=== PATIENT | male | born 1975 | race Two or more races ===

== ENCOUNTER 2021-03-09 14:49 | Outpatient (REF) | payer MEDICAID, SELFPAY ==
--- NOTE | ~2021-03-09 | XR_ITS ---
EXAMINATION: XR CHEST CLINICAL INFORMATION: Right lung bronchi COMPARISON: None TECHNIQUE: 2 views of the chest were obtained. FINDINGS: No significant abnormality is noted involving the heart, lungs, mediastinum, bony thorax or soft tissues. XR/XR chest 2V IMPRESSION: Unremarkable examination.
[2021-03-09 15:43] LABS: MANUAL DIFF FLAG NO
[2021-03-09 15:48] LABS: Basophils Absolute Auto 0.1 X10*3/uL (0.0-0.2); Basophils Percent Auto 0.8 % (0-2); Eosinophils Absolute Auto 0.1 X10*3/uL (0.0-0.4); Eosinophils Percent Auto 1.5 % (0-4); Hematocrit 49.2 % (42-52); Hemoglobin 16.2 g/dl (14.0-18.0); Imm Gran Abs Auto 0.05 X10*3/uL (0.00-0.03); Imm Gran Pct Auto 0.5 % (0.0-0.4); Lymphocytes Absolute Auto 2.3 X10*3/uL (1.2-4.9); Lymphocytes Percent Auto 24.7 % (20-40); Mean Corpuscular HGB Conc 32.9 g/dl (31.0-36.0); Mean Corpuscular Hemoglobin 30.6 pg (27.0-33.0); Mean Platelet Volume 8.8 fL (9.4-12.4); Neutrophils Absolute Auto 5.9 X10*3/uL (2.0-8.3); Neutrophils Percent Auto 62.5 % (45-73); Platelet Count 378 X10*3/uL (160-400); Red Blood Count 5.29 X10*6/uL (4.60-5.80); Red Cell Distribution Width 11.7 % (11.0-16.0); White Blood Count 9.5 X10*3/uL (4.8-10.8)
[2021-03-09 16:16] LABS: Alanine Aminotransferase 24 U/L (0-40); Albumin Level 4.7 g/dL (3.5-5.0); Alkaline Phosphatase 96 U/L (39-117); Anion Gap 15 (12-20); Aspartate Amino Transferase 20 U/L (5-37); Bilirubin Total 0.4 mg/dL (0.0-1.0); Blood Urea Nitrogen 11 mg/dL (9-16); Calcium 9.6 mg/dL (8.4-10.2); Carbon Dioxide 28 mmol/L (22-29); Chloride 106 mmol/L (96-108); Cholesterol 211 mg/dL; Estimated Glomerular Filt Rate 60; Glucose Random 91 mg/dL (60-115); Sodium 144 mmol/L (135-145); Total Protein 7.7 g/dL (6.5-8.0)
[2021-03-09 16:39] LABS: Glucose Urine UA NEG (NEG); Leukocyte Esterase Urine NEG (NEG); Nitrite Urine NEG (NEG); Specific Gravity - Urine >= 1.030 (1.005-1.025); UACC Culture Trigger NO; Urine Blood 3+ (NEG); Urine Ketones 5 MG/DL (NEG); Urine Protein NEG (NEG-TRACE)
[2021-03-09 16:40] LABS: Appearance Urine CLEAR; Color Urine YELLOW
[2021-03-09 16:53] LABS: Mucus Urine 4+ /LPF; WBC Urine 0 /HPF (0-4)
== END 2021-03-09 14:50 | disposition home or self-care (01) ==
LOC: HO.LAB 14:49
PROVIDERS: PCP Internal Medicine; Visit Provider Internal Medicine
DX: R30.0 Dysuria (principal); R63.5 Abnormal weight gain; R09.89 Other specified symptoms and signs involving the circulatory and respiratory systems; Z86.73 Personal history of transient ischemic attack (TIA), and cerebral infarction without residual deficits
CPT/HCPCS: 36415; 71046; 80053; 81001; 82465; 85025; 87086

== ENCOUNTER 2021-03-18 14:32 | Outpatient (REF) | payer MEDICAID, SELFPAY ==
--- NOTE | ~2021-03-18 | FL_ITS ---
EXAMINATION: XR BARIUM SWALLOW CLINICAL INFORMATION: Dysarthria. COMPARISON: None TECHNIQUE: Modified barium swallow with speech pathologist. FINDINGS: Patient swallowed multiple consistencies from thin liquid to barium-coated cookie. On initial swallow of thin liquid, there was laryngeal penetration without tracheal aspiration. On all remaining swallows, there was no evidence of laryngeal penetration. FLUOROSCOPY TIME: 2.1 minutes DOSE AREA PRODUCT: 1.928 Gy-cm2 (vo-centimeter squared) FL/FL barium swallow modified IMPRESSION: Laryngeal penetration on only the first swallow of thin liquid. Remainder of examination was normal. Please refer to speech pathologist report for details.
--- NOTE | 2021-03-20 17:04 | MHC.SL.IMP ---
Date of Plan of Treatment: 03/18/21 Onset of Symptoms/Illness: 03/18/21 Date Treatment Started: 03/18/21 Admitting Diagnosis: History of CVA Primary Speech & Language Diagnosis: R13.12 Oropharyngeal Phase Dysphagia Reason for Today's Visit: 46111 Modified Barium Swallow Study Pre-evaluation Dietary Consistencies: Regular Pre-evaluation Liquid Consistency: Thin Pre-evaluation Medication Administration: Whole with Liquid Medical History: Modified Barium Swallow Study Fluoroscopic Evaluation of Swallowing Function CPT Code 27047 Evaluation Year: 2020 Reason for Study: Patient reports globus sensation. Referring Physician: Dr. Chad Sue Evaluating Clinician: Mis Shaw M.A., CCC-EMERGENCY OPERATOR Study Number: 1 Patient Name: Beltran Mcknight Status: Outpatient, Ambulatory/Assisted Age: 45 Gender: Male MEDICAL HISTORY: Primary (admitting) Diagnosis: CVA Year of Onset or Diagnosis: 2020 Current (pre-evaluation) Intake/Diet: Route: PO Diet Grade: Regular Liquid Consistencies: Thin Pre-Study Functional Oral Intake Scale (FOIS): 7- Total oral intake with no restrictions Pain: None reported at time of study Oral Motor Exam Mouth Occlusion: Normal Oral-Facial Teeth Characteristics: Intact/Normal Oral-Facial Lip Pucker Description: Normal Oral-Facial Smile (Lips) Description: Normal Oral-Facial Puff Cheeks Description: Normal Tongue Size: Normal Tongue Frenum Length: Normal Is patient able to manage secretions?: Yes Food and Liquid Trials: Oral Impairment: Lip Closure: Did not test Oral Impairment: Tongue Control During Bolus Hold: 3=Posterior escape of greater than half of bolus Oral Impairment: Bolus Preparation/Mastication: 1=Slow prolonged chewing/mashing with complete re-collection Oral Impairment: Bolus Transport/Lingual Motion: 3=Repetitive/disorganized tongue motion Oral Impairment: Oral Residue: 2=Residue collection on oral structures Oral Impairment:Initiation of Pharyngeal Swallow: 3=Bolus head in pyriforms Pharyngeal Impairment: Soft Palate Elevation: 0=No bolus between soft palate (SP)/pharyngeal wall (PW) Pharyngeal Impairment: Laryngeal Elevation: 1=Partial thyroid cartilage/arytenoids to epiglottic petiole movement Pharyngeal Impairment: Anterior Hyoid Excursion: 1=Partial anterior movement Pharyngeal Impairment: Epiglottic Movement: 1=Partial inversion Pharyngeal Impairment: Laryngeal Vestibular Closure:: 1=Incomplete: narrow column air/contrast in laryngeal vestibule Pharyngeal Impairment: Pharyngeal Stripping Wave: 1=Present: diminished Pharyngeal Impairment: Pharyngeal Contraction: Did not test Pharyngeal Impairment: Pharyngoesophageal Segment Openin=Complete distension and complete duration: no obstruction of flow Pharyngeal Impairment: Tongue Base (TB) Retraction: 3=Wide column of contrast/air between TB and posterior PW Pharyngeal Impairment: Pharyngeal Residue: 0=Complete pharyngeal clearance Pharyngeal Impairment: Esophageal Clearance Upright Position: Did not test Impressions and Recommendations Clinical Observations: OBJECTIVE: Time-out: performed at 03:00 Evaluation Start: 02:45; Stop: 02:40 Patient Positioning: Seated 70-90 degrees Viewing Planes: LATERAL ONLY Contrast: MBSImP? Standardized Protocol using commercially prepared, standardized Barium viscosities, including: Varibar? THIN LIQUID (40% w/v, <15 cps) , Varibar? NECTAR (40% w/v, <150-450 cps) , 1/2 Shortbread Cookie (1 x1 x.25 ) MBSImP ID: [id number] MBSImP Results: Lip closure for intraoral bolus containment could not be assessed due to logistical reasons not related to physiologic impairment. Tongue control during bolus hold allowed posterior escape of greater than half of the bolus. Bolus preparation and mastication resulted in slow, prolonged chewing/mashing but with complete re-collection. Bolus transport/lingual motion was with repetitive/disorganized motion of the tongue. Oral residue was a collection on oral structures. Initiation of the pharyngeal swallow occurred when the bolus head was in the pyriform sinuses. Soft palate elevation resulted in no bolus between the soft palate and the pharyngeal wall. Laryngeal elevation was decreased, with partial superior movement of the thyroid cartilage/partial approximation of the arytenoids to the epiglottic petiole. Anterior hyoid excursion demonstrated partial anterior movement. Epiglottic movement resulted in partial inversion. Laryngeal vestibular closure was incomplete, with a narrow column of air/contrast noted within the laryngeal vestibule at the height of the swallow. Pharyngeal stripping wave was present, but diminished. Pharyngeal contraction could not be determined due to logistical reasons not related to physiologic impairment. Pharyngoesophageal segment opening was completely distended for complete duration with no obstruction of bolus flow. Tongue base retraction allowed a wide column of contrast or air between the retracted tongue base and the posterior pharyngeal wall. Pharyngeal residue was not present. There was complete pharyngeal clearance. Esophageal clearance in the upright position could not be assessed due to logistical reasons not related to physiologic impairment. Oral Impairment Score: 12 (absence of score, component 1) Pharyngeal Impairment Score: 8 (absence of score, component 13) Esophageal Impairment Score: --- (absence of score, component 17) Laryngeal Penetration and Aspiration: Penetration was observed in today's study. Thin Contrast entered the airway, remained above the vocal folds, and was ejected from the airway. ASSESSMENT: This exam was conducted by radiologist and speech-language pathologist. Patient was seated upright at 90 degree angle for lateral view only. Patient was able to feed himself. He trialed the following liquid and solid consistencies: -5 mL thin liquid barium -consecutive versus individual cup sip thin liquid barium -individual cup sip nectar thick liquid barium -pureed solid (applesauce mixed with barium paste) -ground solid (chicken salad mixed with barium paste) -regular solid (Mariola Doone cookie coated in barium paste) Patient displays oropharyngeal dysphagia, characterized by impairments in the following components of swallow physiology: ORALPHASE: -posterior escape of >50% of bolus -prolonged mastication -repetitive/disorganized posterior tongue movement -mild oral residue -delayed pharyngeal swallow trigger PHARYNGEAL PHASE: -partial laryngeal elevation with partial anterior hyoid excursion and partial epiglottic inversion -incomplete laryngeal vestibular closure resulting in episode of penetration -diminished pharyngeal stripping wave -reduced tongue base retraction Noted one instance of penetration during this exam. When patient took first sip of thin liquid, contrast entered the airway above the vocal folds and subsequently and spontaneously ejected from airway. No further episodes of penetration evident with subsequent trials of thin and nectar thick liquid. No aspiration evident during this exam. Noted mild oral residue and complete pharyngeal clearance. Posterior escape of bolus and delayed pharyngeal swallow trigger. PLAN: Intake Recommendations: Route: PO Diet Grade: Regular Liquid Consistencies: Thin Post-Study Functional Oral Intake Scale (FOIS): 7- Total oral intake with no restrictions No aspiration evident during this exam. One instance of penetration. Patient is recommended to resume unmodified diet regular solids and thin liquids with aspiration precautions: -small sips of liquid -individual sips- no ?chugging? or consecutive sipping -no straws due to delay in swallow trigger -upright 90 degree position when eating and/or drinking -small bites of food -chew food well -moisten food with sauce and/or gravy when possible -alternate bite of food with small sip of liquid -eat and drink with a slow pace -chew food well and clear oral cavity before taking more bites Aspiration precautions were reviewed with patient at the end of this exam. ? Suggested Referrals: The patient might benefit from a referral to: Neurology Indication for Referral: for ongoing managment Therapy Recommendations: Therapy will be discontinued Prognosis for Improvement:?The prognosis for the patient to meet nutritional needs by mouth is fair based on degree of impairment. Liquid Intake Recommendation: Thin Liquid Intake Strategies: Small Sips No Straws Dietary Recommendations: Regular Medication Administration: Whole with Liquid Compensatory Strategies Recommended: Sitting Upright (90 deg) No Straw Small Bites and Sips Alternate Liquids/Solids Rate of Ingestion Change Supervision during eating and or drinking: Intermittent Supervision Recommendation for Speech Therapy: Outpatient Speech Therapy Text Comment: Recommend outpatient speech evaluation RE: dysarthria. Clinician - Supplemental, Miscellaneous Communication: It is important to note MBSS objective studies are snapshots in time and Patient function might vary with factors such as time of day or concomitant medical conditions. For this reason, the final treatment plan for this patient should rest with their medical care team. Additional recommendations should be considered with the totality of the Patient in mind. Thank for the opportunity to participate in the care of this patient. If you have any questions about the content of this report, please contact the [facility] at [facility]. Education: Education regarding findings from today's study and plans for therapy were provided to Patient only through Verbal Instruction. Understanding was expressed by the Patient only. Shoe Repair Supervisor Clinician/Clinical Fellow: No Supervisory Statement: N/A Speech Language Pathologist: Mis Shaw M.A., CCC-EMERGENCY OPERATOR
== END 2021-03-18 14:33 | disposition home or self-care (01) ==
LOC: HO.XRAY 14:32
PROVIDERS: Visit Provider Internal Medicine
DX: R47.1 Dysarthria and anarthria (principal); Z86.73 Personal history of transient ischemic attack (TIA), and cerebral infarction without residual deficits
CPT/HCPCS: 74230; 92611

== ENCOUNTER → 2021-04-08 15:35 | Outpatient (BNVA) | payer MEDICAID, SELFPAY | PROVIDERS: PCP Internal Medicine; Referring Provider Internal Medicine; Visit Provider Surgery | DX: D17.0 Benign lipomatous neoplasm of skin and subcutaneous tissue of head, face and neck (principal) | CPT/HCPCS: 99202 ==

== ENCOUNTER 2021-05-12 06:35 | Day surgery (SDC) | payer MEDICAID, SELFPAY ==
--- NOTE | 2021-05-05 | ECG_ITS ---
Test Reason : preop Blood Pressure : / mmHG Vent. Rate : 066 BPM Atrial Rate : 066 BPM P-R Int : 156 ms QRS Dur : 092 ms QT Int : 382 ms P-R-T Axes : 059 047 027 degrees QTc Int : 400 ms Normal sinus rhythm Normal ECG No previous ECGs available Referred By: Latoya Mckeon Electronically Signed By:MARIO CASTILLO
[2021-05-05 12:26] VITALS: BMI 24.7
--- NOTE | 2021-05-05 12:38 | HO.ANESPROP2 ---
Documented by User: Latoya Mckeon NP 05/11/21 09:36 HPI - Anesthesia Eval Consult details Narrative: 46yo M for Excision of Forehead Lipoma 05/12/21 h/o polysubstance abuse and CVA 2011 with residual aphasia/gait instability [facility] Active Problems Active Problems: All Active Problems (Updated 05/05/21 @ 12:25 by Alicia Pascal RN) Lipoma of forehead (Acute) CVA (cerebral vascular accident) (Acute) Past Medical History Medical History CVA (cerebral vascular accident) Expressive aphasia Gait instability History of alcohol abuse Hx of drug abuse Lipoma of forehead Memory deficit after cerebral infarction Family History Family history of problems with anesthesia: No Surgical History Surgical History History of appendectomy History of Problems with Anesthesia: No Social History Social History (Updated 05/12/21 @ 09:44 by Suzy Haynes MD) Are you a primary career development facilitator to a significant other at home: No Do you presently have visiting nurse or other home services: No Patient Tobacco Use Status: Current everyday Tobacco user Tobacco use type: Cigarette Cigarette Packs Per Day: 0.25 Cigarettes Per Day: 5.0 Years Smoked: > 5 yrs Smoked in Last 30 Days: Yes Patient Given Instructions on How to Stop Smoking: Yes Date Education Initiated: 05/05/21 Use of substances other than those prescribed or required for medical reasons: Yes Substance Use Frequency: Daily Are you DNR?: No Advance Directives: No Advance Directives Information Provided: Yes (Given to patient and family today) Advance Directives on File: No Recently lost weight without trying: Yes How much weight loss: 2-13 pounds Eating poorly because of decreased appetite: No Nutrition screen score: 3 Nutrition Risks: Difficulty swallowing Meds Allergies Allergy/AdvReac Type Severity Reaction Status Date / Time No Known Allergies Allergy Verified 05/12/21 06:59 Home Medications Medication Instructions Recorded Confirmed Last Taken Type bliidkkt-rdw-AT 0.4 mg-calcium 162 1 tab PO DAILY 05/05/21 05/05/21 Unknown History mg-iron 18 iv-ghkmvts-vqfaqe tablet Exam Exam Date and Time: May 05, 2021 1238 Height,Weight and Vital Signs: Height 5 ft 7 in Weight 71.668 kg Pertinent Lab Results Pertinent Lab Results: Laboratory Tests 03/09/21 03/09/21 15:05 15:05 WBC 9.5 Hgb 16.2 Hct 49.2 Plt Count 378 Sodium 144 Potassium 5.0 Chloride 106 BUN 11 Creatinine 1.30 Narrative Narrative: EKG 04/2021 Vent. Rate : 066 BPM ? ? Atrial Rate : 066 BPM ?? P-R Int : 156 ms? QRS Dur : 092 ms ? ? QT Int : 382 ms ? ? ? P-R-T Axes : 059 047 027 degrees ?? QTc Int : 400 ms ? Normal sinus rhythm Normal ECG No previous ECGs available Assessment and Plan Assessment Anesthesia Assessment: Anesthesia Plan Discussed, Smoking Cess. Discussed and PAT Visit Final Anesthetic Review Family History of Problems with Anesthesia: No History of Problems with Anesthesia: No Documented by User: Suzy Haynes MD 05/12/21 09:45 [facility] Active Problems Active Problems: All Active Problems (Updated 05/05/21 @ 12:25 by Alicia Pascal RN) Lipoma of forehead (Acute) CVA (cerebral vascular accident) (Acute) Smoker ETOH, Marijuana 2 days ago Past Medical History Medical History CVA (cerebral vascular accident) Expressive aphasia Gait instability History of alcohol abuse Hx of drug abuse Lipoma of forehead Memory deficit after cerebral infarction Functional capacity: independent ambulation Surgical History Surgical History History of appendectomy Social History Social History (Updated 05/12/21 @ 09:44 by Suzy Haynes MD) Are you a primary career development facilitator to a significant other at home: No Do you presently have visiting nurse or other home services: No Patient Tobacco Use Status: Current everyday Tobacco user Tobacco use type: Cigarette Cigarette Packs Per Day: 0.25 Cigarettes Per Day: 5.0 Years Smoked: > 5 yrs Smoked in Last 30 Days: Yes Patient Given Instructions on How to Stop Smoking: Yes Date Education Initiated: 05/05/21 Use of substances other than those prescribed or required for medical reasons: Yes Substance Use Frequency: Daily Are you DNR?: No Advance Directives: No Advance Directives Information Provided: Yes (Given to patient and family today) Advance Directives on File: No Recently lost weight without trying: Yes How much weight loss: 2-13 pounds Eating poorly because of decreased appetite: No Nutrition screen score: 3 Nutrition Risks: Difficulty swallowing Meds Allergies Allergy/AdvReac Type Severity Reaction Status Date / Time No Known Allergies Allergy Verified 05/12/21 06:59 Home Medications Medication Instructions Recorded Confirmed Last Taken Type zhanggvy-krn-KB 0.4 mg-calcium 162 1 tab PO DAILY 05/05/21 05/05/21 Unknown History mg-iron 18 vl-gywxgsl-qkpche tablet Exam Height,Weight and Vital Signs: Height 5 ft 7 in Weight 71.668 kg Vital Signs Pulse Resp BP Pulse Ox 76 16 116/80 99 05/05/21 12:53 05/05/21 12:53 05/05/21 12:53 05/05/21 12:53 Airway Mallampati Class: II TM Dist: >3cm Neck ROM: Full Loose/Missing/Broken Teeth: Yes (Top front chipped) Heart: RRR Lungs: CTAB Assessment and Plan Final Anesthetic Review NPO: Yes ASA Class: III Final Preanesthetic Review: No Changes in Pt Med Stat, Meds/Allgs Chart Reviewed, Consent Obtained/Reviewed and Anes Risks/Benef Reviewed Patient Risk: Intermediate Procedure Risk: Low Assessment/Block/Sedation in SS: Assess/Block/Sedation-SS Anesthetic Plan Anesthetic Plan: MAC: Disposition: Standard PACU
[2021-05-05 12:53] VITALS: BP 116/80; PULSE 76; RESP 16; O2SAT 99
[2021-05-12 07:08] VITALS: BP 129/85; PULSE 72; RESP 16; TEMP 36.6; O2SAT 98
[2021-05-12] MEDS: Lactated Ringers 1,000 ML 100 ML IVCONT (07:23)
--- NOTE | 2021-05-12 08:18 | MHC.SHP ---
Pre-Procedural Eval Section A Date of Service: 05/12/21 Section B Chief Complaint: Lipoma of forehead Allergies: Allergies Allergy/AdvReac Type Severity Reaction Status Date / Time No Known Allergies Allergy Verified 05/12/21 06:59 Plan I have reviewed the history and physical and performed a pertinent physical examination on my patient. No changes have occurred unless specified.
--- NOTE | 2021-05-12 09:35 | P.OP_ITS ---
Operative Note Operative Note Date of Service: 05/12/21 Narrative: Preop diagnosis: Large lipoma of the forehead Postop diagnosis: The same Procedure: Excision of a large lipoma from forehead under monitored anesthesia care Surgeon: Chad Merritt MD Environmental Services Assistant: CORTES Watts student The patient is a 46-year-old male with a large lipomatous mass on the forehead above the left eyebrow. This measured about 4 cm in diameter. He wanted to proceed with excision. In view of the size, I told him that it may be best to do this in the operating room under anesthesia. He was aware of the risks, benefits, and alternatives. He was brought to the operating room and placed in supine position under monitored anesthesia care. The area of the forehead was prepped and draped in the usual sterile fashion. A surgical time-out was done. The patient received cefazolin 2 g IV preoperatively I infiltrated the planned line of incision using lidocaine 1%. I made the incision using blade 15. This was carried down through the full-thickness skin and subcutaneous fat with electrocautery. We then proceeded to palpate for the lipoma and this appeared to be actually underneath part of the frontalis muscle fibers. I therefore had to divide the muscle fibers with electrocautery gently until were able to visualize the lipoma. We sharply dissected the lipoma off the rest of the muscle fibers around this all the way posteriorly to lift this up off the periosteum of bone. This measured 4 cm in widest diameter by 3 cm. I irrigated the area of excision. I cauterized oozing areas especially on the muscle fibers. Once hemostasis was ensured I proceeded to close the incision with multiple simple nylon 5-0 interrupted sutures. Steri-Strips and dressings were applied. The procedure was then completed. The patient tolerated procedure well. There were no complications noted. Initial fine counts of sponges and instruments were correct. Estimated blood loss was about 10 cc. The patient was then transferred to the recovery room with stable vital signs.
--- NOTE | 2021-05-12 09:40 | P.BOP_ITS ---
Brief Operative Note Date of Service: 05/12/21 Pre-op diagnosis: Lipoma, forehead Post-op diagnosis: same Procedure: Excision of lipoma, forehead under anesthesia Surgeon: Chad Merritt MD Anesthesia: MAC Was an Registered Nurse First Assistant used for this Procedure?: No Estimated blood loss (mL): 10 Pathology: other (Lipoma) Condition: stable Disposition: PACU
[2021-05-12 09:42] VITALS: BP 100/62; PULSE 72; RESP 16; TEMP 36.3; O2SAT 97
[2021-05-12 09:57] VITALS: BP 97/57; PULSE 64; RESP 16; O2SAT 95
[2021-05-12 10:10] VITALS: BP 111/75; PULSE 75; RESP 16; TEMP 36.3; O2SAT 98
== END 2021-05-12 10:56 | disposition home or self-care (01) ==
PROVIDERS: PCP Internal Medicine; Visit Provider Surgery
PROC: (CPT 21012; principal; 2021-05-12 08:40)
DX: D17.0 Benign lipomatous neoplasm of skin and subcutaneous tissue of head, face and neck (principal); I69.320 Aphasia following cerebral infarction; I69.398 Other sequelae of cerebral infarction; I69.311 Memory deficit following cerebral infarction; R26.89 Other abnormalities of gait and mobility; F17.210 Nicotine dependence, cigarettes, uncomplicated
CPT/HCPCS: 21012; 88304; 93005; J0690; J2250; J3010

== ENCOUNTER 2021-05-29 10:00 | Outpatient (RCR) | payer MEDICAID, SELFPAY ==
--- NOTE | 2021-05-15 13:49 | MHC.SL.SOA ---
Referring Provider: Dr. Chad Sue Reason for Referral: History of CVA Date of Plan of Treatment:03/25/21 Onset of Symptoms/Illness:03/25/21 Date Treatment Started:03/25/21 Medical Diagnosis:CVA Dysphagia Primary Speech Language Diagnosis:R47.01 Aphasia Secondary Speech Language Diagnosis:R47.1 Dysarthria Number of Authorized Visits Remaining: Authorization End Date: Reason for Visit:87110 Individual Treatment Other: Subjective:Patient attended this session in person with appropriate health and safety precautions due to the current pandemic, including mask wearing, social distancing, hand hygiene, and sanitizing of materials. Patient was accompanied by his niece. Patient reported that he has started physical therapy and is waiting for an appointment with an eye doctor. Objective: Patient completed the Cognitive Linguistic Quick Test (CLQT) as a measure of his cognitive-linguistic skills. His performance is as follows: Task: Criterion Cut Score, Patient?s Score, Interpretation Personal Facts: 8, 5, IMPAIRED Symbol Cancellation: 11, 0, IMPAIRED Confrontational Namin, 10, WNL Clock Drawin, 12, WNL Story Retellin, 3, IMPAIRED Symbol Trails: 9, 4, IMPAIRED Generative Namin, 3, IMPAIRED Design Memory: 5,6, WNL Mazes: 7, 8, WNL Design Generation: 6, 3, IMPAIRED Task scores were summed together based on cognitive domain. Cognitive Domain scores are as follows: Cognitive Domain: Domain Score, Severity Range, Severity Rating Attention: 65, MODERATE, 2 Memory: 116, MODERATE, 2 Executive Functions: 18, MODERATE, 2 Language: 21, MODERATE, 2 Visuospatial Skills: 59, MILD, 3 Assessment:Patient?s Composite Severity Rating of 2.2 is considered to be within the moderate range severity for patient?s age. Patient was able to provide personal facts which included his name, date of , place of , and age. He did not provide his address, and explained that due to his motoric difficulties, often times a family member, in this case, his niece, will provide transportation and help him complete paperwork. Thus, he is not provided with the opportunity to learn his current address. Patient exhibited difficulty completing the symbol cancellation task, screening his visual attention and perception. Patient cancelled 11 out of 12 correct symbols and 12 additional symbols, which were similar in appearance, but incorrect. Patient?s ability to complete this task may have been impacted by visual acuity deficit. There are concerns surrounding patient?s vision and he is scheduled to see a vision rehabilitation therapist. During a confrontation naming task, patient correctly named 10 out of 10 items. Patient was able to recall 6 out of 18 details from a story, and correctly answered 0 out of 3 yes/no comprehension questions. Patient named 7 items within the ?animal? category and 5 items starting with the letter ?m? with a 60 second time constraint during a generative naming task. Patient was instructed to draw a clock, a task which is considered a mini screening for all cognitive domains and skills, including visuospatial, planning, number and time concepts. Patient included 12 numbers in his clock, which were oriented correctly for reading in a circular pattern, but poorly spaced. Patient included two hands, one distinguishably long and the other short. Hands originated from the center of the wiyot and indicated the correct time. Again, patient?s motoric difficulties impact his ability to write and draw. Patient was able to draw trails connecting items from smallest to largest, and connecting alternating shapes. However, he exhibited difficulty with this task when these two rules were combined. Patient displayed intact visual memory. During a design generation activity, patient was instructed to create shapes connecting four dots with 4 lines. Patient generated 3 designs, but was observed to perseverate on previously generated designs. Notes: Next session is scheduled for Tuesday05/22/21 at 10am. Plan to add these objectives: 3.1. The patient will recall 5 or more items (i.e. grocery list, medication list, etc.) after a 30 minute delay given intermittent minimal verbal cues. 3.2. The patient will read paragraph level information and answer questions about the material at 80% accuracy after a 5 minute delay. Plan: Goal # : 1.1. Patient will utilize Semantic Feature cues to describe items to a listener successfully in 80% of opportunities. Status of Goal: New Goal Goal # : 2.1. Patient will utilize compensatory strategies for improved speech clarity (i.e. pacing cues, segmentation of syllables, slowing rate of speech, overarticulation) in 4 out of 5 opportunities when provided with minimal verbal reminders. Status of Goal: New Goal Goal # : 3.1. The patient will recall 5 or more items (i.e. grocery list, medication list, etc.) after a 30 minute delay given intermittent minimal verbal cues. 3.2. The patient will read paragraph level information and answer questions about the material at 80% accuracy after a 5 minute delay. Status of Goal: New Goal Goal # : 4.) Patient will utilize compensatory strategies for improved speech clarity (i.e. pacing cues, segmentation of syllables, slowing rate of speech, overarticulation) in 4 out of 5 opportunities when provided with minimal verbal reminders. Status of Goal: New Goal Seen by: Graduate/Clinical Fellow: No Supervisory Statement: f_Reg Query Last Value , MHC.AU.[facility] Speech Language Pathologist: Mis Shaw M.A., CCC-FORMULA MIXER
== END 2021-12-07 16:07 | disposition home or self-care (01) ==
LOC: HO.SH 10:00
PROVIDERS: Visit Provider Internal Medicine
DX: R47.01 Aphasia (principal); R47.1 Dysarthria and anarthria
CPT/HCPCS: 92507

== ENCOUNTER 2021-05-29 10:00 | Outpatient (RCR) | payer MEDICAID, SELFPAY ==
--- NOTE | 2021-04-20 11:58 | MHC.PT.EP ---
[facility] [place] Office [place] Office [place] Office [address] Mark Valentin [address] [phone] F: [phone] F: [phone] F: [phone] F: [phone] Physical Therapy Plan of Care Date of Evaluation: Date of Surgery: N/A Diagnosis: Falls Dysarthria h/o CVA Assessment: Pt is a 46 year old male who presents to therapy with a history of falls, dysarthria, and 2 CVAs (in 2011). His self reported limitations include difficulty maintaining his balance, stairs, putting on his shoes and walking/standing for prolonged periods. Upon examination, his impairments include gait abnormalities, decreased quad strength and decreased balance. During gait assessment, patient ambulated with limited to no knee flexion, slight circumduction davon LE, increased weight shift from side to side, antalgic gait, minimal to no arm swing, increased ER of the feet, significant hip A/P movement and limited toe off. His LE ROM was within functional limits davon, the pt could potentially be experiencing an extensor synergy of davon LE. Pt shows fair rehab potential 2* to general disease prognosis, his age, and eagerness to get better. Potential barriers to therapy include a language barrier, the chronic nature of his disease and ability to follow a HEP. Pt will benefit from skilled PT to increase his balance and efficiency of his gait. Pt will be seen 2x/week for 6 weeks and will be reassessed at 6 weeks to see if further treatment is necessary. Frequency and Duration: The patient will be seen 2x/week for 6 weeks Short Term Goals: 1. Pt will be able to balance in a NBOS with EC for 30 seconds with minimal sway and CS in 3 weeks to show an increase in balance ability. 2. Pt will be able to walk 200 feet demonstrating no circumduction, increased hip flexion and toe off in 3 weeks in order to approve gait efficiency. Custodial Goals: 1. Pt will be able to ascend/descend 1 flight with step over step gait pattern/davon UE support in 6 weeks in order to ease stair negotiation at home. 2. Pt will be able to balance in a tandem stance EO for 30 seconds with minimal sway and CS in 6 weeks in order to demonstrate an increase in balance. Treatment Plan: Modalities to reduce pain, spasms and effusion. Manual therapy to restore motion and function. Therapeutic exercise to improve strength and flexibility. Neuromuscular re-education for posture and balance. Therapeutic activities to return to functional activities of daily living. Electronically signed by: Diana Cintron PT,DPT Please sign and return to therapist. Thank you for your referral.
--- NOTE | 2021-06-11 08:31 | MHC.PT.DC ---
[facility] [place] [facility] Reading [facility] [address] Mark Valentin [address] [phone] F: [phone] F: [phone] F: [phone] F: [phone] Physical Therapy Discharge Report Diagnosis: Falls Dysarthria h/o CVA Date of Surgery: N/A Date of Evaluation: 04/20/21 Date of Discharge: 05/12/21 Treatments to Date: 3 Cancellations to Date: 0 No Shows to Date: 3 Discharge Status: Patient Elected to Stop Visit Non-compliance Discharge Summary: No showed for last three scheduled visits, status unknown. Discharged for non-compliance. Electronically signed by: Diana Cintron PT, DPT Please sign and return to therapist. Thank you for your referral.
== END 2021-06-11 08:31 | disposition home or self-care (01) ==
LOC: HO.PT 10:00
PROVIDERS: PCP Internal Medicine; Visit Provider Internal Medicine
DX: I69.322 Dysarthria following cerebral infarction (principal); W19.XXXA Unspecified fall, initial encounter
CPT/HCPCS: 97110; 97162

== ENCOUNTER 2021-06-26 10:00 | Outpatient (RCR) | payer MEDICAID, SELFPAY | END 2021-07-08 13:29 | disposition other institution (70) | LOC: HO.SH 10:00 | PROVIDERS: Visit Provider Internal Medicine | DX: R47.01 Aphasia (principal); R47.1 Dysarthria and anarthria | CPT/HCPCS: 92507; 92523 ==